=== PATIENT | female | born 1975 | race Caucasian/White ===

== ENCOUNTER → 2024-10-21 | Outpatient (CLI) | payer BC, OTHER, SELFPAY ==
[2024-10-21 09:41] LABS: Thyroid Stimulating Hormone 0.02 uIU/mL (0.55-4.78)
== END | disposition home or self-care (01) ==
LOC: COPL 08:16
PROVIDERS: PCP Registered Nurse Community Health; Referring Provider Registered Nurse Community Health; Visit Provider Registered Nurse Community Health
DX: E06.3 Autoimmune thyroiditis (principal)
CPT/HCPCS: 36415; 84443

== ENCOUNTER → 2024-12-09 | Outpatient (CLI) | payer BC, OTHER, SELFPAY ==
[2024-12-09 15:58] LABS: Free T3 4.3 pg/mL (2.3-4.2); Free T4 (Free Thyroxine) 0.59 ng/dL (0.89-1.76); Thyroid Stimulating Hormone 0.02 uIU/mL (0.55-4.78)
== END | disposition home or self-care (01) ==
LOC: COPL 14:07
PROVIDERS: PCP Registered Nurse Community Health; Referring Provider Registered Nurse Community Health; Visit Provider Registered Nurse Community Health
DX: E06.3 Autoimmune thyroiditis (principal)
CPT/HCPCS: 36415; 84439; 84443; 84481

== ENCOUNTER → 2025-01-31 | Outpatient (CLI) | payer BC, OTHER, SELFPAY ==
[2025-01-31 11:40] LABS: Free T4 (Free Thyroxine) 0.41 ng/dL (0.89-1.76); Thyroid Stimulating Hormone 0.55 uIU/mL (0.55-4.78)
[2025-01-31 12:14] LABS: Free T3 7.7 pg/mL (2.3-4.2)
== END | disposition home or self-care (01) ==
LOC: COPL 10:18
PROVIDERS: PCP Registered Nurse Community Health; Referring Provider Registered Nurse Community Health; Visit Provider Registered Nurse Community Health
DX: E06.3 Autoimmune thyroiditis (principal)
CPT/HCPCS: 36415; 84439; 84443; 84481

== ENCOUNTER → 2025-03-31 | Outpatient (CLI) | payer BC, OTHER, SELFPAY ==
[2025-03-31 08:38] LABS: Basophils # (Auto) 0.1 Thou/mm3 (0.0-0.2); Basophils % (Auto) 2 % (0-2.5); Eosinophils # (Auto) 0.3 Thou/mm3 (0.0-0.5); Eosinophils % (Auto) 7 % (0-10); Hematocrit 42.6 % (36.0-46.0); Hemoglobin 14.4 g/dL (12.0-16.0); Immature Granulocytes % (Auto) 0 % (0-0); Immature Granulocytes Auto 0.01 Thou/mm3 (0.00-0.00); Lymphocytes # (Auto) 1.5 Thou/mm3 (1.0-4.8); Lymphocytes % (Auto) 32 % (10-50); Mean Corpuscular HGB Conc 33.8 g/dl (31.0-37.0); Mean Corpuscular Hemoglobin 30.2 pg (25.0-35.0); Mean Corpuscular Volume 89 fL (80-100); Monocytes # (Auto) 0.2 Thou/mm3 (0.0-0.8); Monocytes % (Auto) 5 % (0-12); Neutrophils # (Auto) 2.4 Thou/mm3 (1.8-7.7); Neutrophils % (Auto) 54 % (37-80); Nucleated Red Blood Cell % 0 /100 WBC (0); Platelet Count 267 Thou/mm3 (140-440); Red Blood Count 4.77 Miln/mm3 (4.00-5.20); White Blood Count 4.5 Thou/mm3 (3.6-11.0)
[2025-03-31 09:11] LABS: Alanine Aminotransferase 14 U/L (10-49); Albumin, Serum 4.5 gm/dL (3.5-5.0); Albumin/Globulin Ratio 1.4 (1.2-2.2); Alkaline Phosphatase 99 U/L (46-116); Anion Gap 10 (7-16); Aspartate Amino Transferase 21 U/L (0-34); BUN/Creatinine Ratio 16 Ratio (12-20); Bilirubin,Total 0.7 mg/dL (0.3-1.2); Blood Urea Nitrogen 14 mg/dL (9-23); Calcium 8.8 mg/dL (8.3-10.6); Calcium (Corrected) 8.8 mg/dL (8.5-10.1); Carbon Dioxide 23.2 mMol/L (20.0-31.0); Cardiac Risk Estimate 2.6 RATIO (3.7-5.6); Chloride 108 mMol/L (98-107); Cholesterol 169 mg/dL (132-200); Creatinine (Component) 0.9 mg/dL (0.6-1.3); Free T4 (Free Thyroxine) 0.36 ng/dL (0.89-1.76); Globulin 3.2 gm/dL (2.3-3.5); Glucose 95 mg/dL (74-106); HDL Cholesterol 64 mg/dL (40-60); LDL Cholesterol,Calculated 90 mg/dL (0-130); Osmolality,Calculated 281 (275-295); Potassium 4.2 mMol/L (3.4-5.1); Sodium 141 mMol/L (136-145); Thyroid Stimulating Hormone 0.52 uIU/mL (0.55-4.78); Total Protein 7.7 gm/dL (5.7-8.2); Triglycerides 76 mg/dL (30-150); eGFR > 60 See Note
[2025-03-31 09:23] LABS: Glucose Estimated Average 100 mg/dL (80-131); Hemoglobin A1C 5.1 % Hgb (4.8-6.0)
[2025-03-31 09:41] LABS: Hepatitis B Surface Ab Reactive (Immune) (Immune); Hepatitis B Surface Antigen Non Reactive (Non React); Rubella, IgG Antibody Reactive (Immune)
[2025-04-03 06:31] LABS: Hepatitis B Core Ab,Total* NONREACTIVE; Measles Antibody (IGG), Immun* >300.00 AU/mL; Mumps Virus Ab (IgG) Immune* >300.00 AU/mL; T3,Total* 108 ng/dL (76-181)
== END | disposition home or self-care (01) ==
LOC: COPL 07:25
PROVIDERS: PCP Registered Nurse Community Health; Referring Provider Registered Nurse Community Health; Visit Provider Registered Nurse Community Health
DX: E78.2 Mixed hyperlipidemia (principal); E03.9 Hypothyroidism, unspecified; E66.01 Morbid (severe) obesity due to excess calories; Z11.59 Encounter for screening for other viral diseases; Z01.84 Encounter for antibody response examination
CPT/HCPCS: 36415; 80053; 80061; 83036; 84439; 84443; 84480; 85025; 86704; 86706; 86735; 86762; 86765; 87340

== ENCOUNTER → 2025-05-12 | Outpatient (CLI) | payer BC, OTHER, SELFPAY ==
--- NOTE | 2025-05-12 | XR_ITS ---
Examination: Breast ultrasound, unilateral, left Date and time of exam: May 12, 2025 0722 hours INDICATIONS: Left breast pain beginning 2 months ago Technique: Real-time chapa scale ultrasonographic imaging performed left breast including all 4 quadrants as well as nipple retroareolar and axillary region. Findings: 12:00 cyst 4 x 6 mm. 2:00 cyst 6 x 5 mm Smaller cysts. No solid nodules. IMPRESSION: BI-RADS Category 2: Benign findings
== END | disposition home or self-care (01) ==
LOC: CDIM 06:50
PROVIDERS: Referring Provider Registered Nurse Community Health; Visit Provider Registered Nurse Community Health
DX: N64.4 Mastodynia (principal)
CPT/HCPCS: 76641

== ENCOUNTER → 2025-06-16 | Outpatient (CLI) | payer BC, OTHER, SELFPAY ==
[2025-06-16 11:24] LABS: Free T3 6.4 pg/mL (2.3-4.2); Free T4 (Free Thyroxine) 0.20 ng/dL (0.89-1.76); Thyroid Stimulating Hormone 0.54 uIU/mL (0.55-4.78)
[2025-06-19 06:19] LABS: Thyroid Peroxidase Antibodies* 62 IU/mL (<9)
== END | disposition home or self-care (01) ==
LOC: COPL 09:49
PROVIDERS: PCP Registered Nurse Community Health; Referring Provider Registered Nurse Community Health; Visit Provider Registered Nurse Community Health
DX: E06.3 Autoimmune thyroiditis (principal)
CPT/HCPCS: 36415; 84439; 84443; 84481; 86376

== ENCOUNTER → 2025-09-01 | Outpatient (CLI) | payer BC, OTHER, SELFPAY ==
[2025-09-01 11:46] LABS: Free T4 (Free Thyroxine) 0.58 ng/dL (0.89-1.76); Thyroid Stimulating Hormone 140.49 uIU/mL (0.55-4.78)
[2025-09-01 11:59] LABS: T4 (Thyroxine) 3.3 mcg/dL (4.5-10.9)
[2025-09-04 06:34] LABS: Thyroid Peroxidase Antibodies* 142 IU/mL (<9)
== END | disposition home or self-care (01) ==
LOC: COPL 10:31
PROVIDERS: PCP Registered Nurse Community Health; Referring Provider Registered Nurse Community Health; Visit Provider Registered Nurse Community Health
DX: E06.3 Autoimmune thyroiditis (principal)
CPT/HCPCS: 36415; 84436; 84439; 84443; 86376

== ENCOUNTER → 2025-10-06 | Outpatient (CLI) | payer BC, OTHER, SELFPAY ==
[2025-10-06 11:12] LABS: Free T3 1.7 pg/mL (2.3-4.2); Free T4 (Free Thyroxine) 1.02 ng/dL (0.89-1.76); Thyroid Stimulating Hormone 77.14 uIU/mL (0.55-4.78)
== END | disposition home or self-care (01) ==
PROVIDERS: PCP Registered Nurse Community Health; Referring Provider Student in an Organized Health Care Education/Training Program; Visit Provider Student in an Organized Health Care Education/Training Program
DX: E03.9 Hypothyroidism, unspecified (principal)
CPT/HCPCS: 36415; 84439; 84443; 84481